=== PATIENT | female | born 1985 | race Caucasian/White ===

== ENCOUNTER 2024-09-27 18:33 | Emergency (ER) | payer OTHER, SELFPAY ==
[2024-09-27 18:35] VITALS: BP 156/104; PULSE 129; RESP 20; TEMP 36.2; O2SAT 95; BMI 64.5
--- NOTE | 2024-09-27 18:36 | ED.GENADULT ---
HPI - General Adult General Chief complaint: General Medical Stated complaint: both hands swollen & joint pain everywhere Time Seen by Provider: 09/27/24 18:44 History of Present Illness HPI narrative: Patient is 39 years old presents today with having diffuse joint pain. No fever no chills. Pain is over both arms and legs and wrist knees ankles. No specific trigger. No travel history. Patient from home. No trauma. Related Data Previous Rx's ?Medication ?Instructions ?Recorded ibuprofen 400 mg tablet 400 mg PO Q6H PRN pain #20 tabs 09/27/24 doxycycline hyclate 100 mg capsule 100 mg PO BID 3 weeks #42 caps 10/02/24 Allergies Allergy/AdvReac Type Severity Reaction Status Date / Time sulfamethoxazole (From AdvReac Rash Verified 09/27/24 18:38 Bactrim) trimethoprim (From Bactrim) AdvReac Rash Verified 09/27/24 18:38 Review of Systems Review of Systems: Positive body ache PMFSH Past Medical History Attestation statement: The following information was validated with the patient. Physical Exam ED Vital Signs: Vital Signs - 24 hr 09/27/24 18:35 09/27/24 20:01 Temperature 97.2 F 98.6 F Pulse Rate 129 H 108 H Respiratory Rate 20 23 H Blood Pressure 156/104 H 159/92 H Pulse Oximetry 95 94 Oxygen Delivery Method Room Air Room Air BMI result Body Mass Index 64.5 Appearance: Alert. Oriented X3. No acute distress. Eyes: Pupils equal, round and reactive to light. ENT: Pharynx normal. Neck: Normal inspection. Neck supple. No lymph nodes noted. No crepitus CVS: Normal heart rate and rhythm. Pulses normal. Normal S1 and S2 Respiratory: No respiratory distress. Breath sounds normal. No Wheezing. No rales Abdomen: Soft and nontender. No rigidity. No distention. good BS x4 Skin: Skin warm and dry. Normal skin color. Normal skin turgor. Extremities: No lower extremity edema. Neurovascular intact to all extremities. No Lacerations. No Rash Neuro: Oriented X 3. No motor deficit. No sensory deficit. Moving all extermities. No slurred speech Course Course Course Narrative: Genoveva Solano APRN This is a rapid medical exam. Deferred additional HPI, ROS, PE to primary provider. 39 yo female here with complaints of diffuse joint pain/swelling/stiffness x several weeks worsened in the morning. 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 Also reports her blood pressure/heart rate are usually elevated in medical settings. Discussed she will need outpatient follow-up for additional testing. Will send labs, need repeat HR/BP Reevaluation(s) Reevaluation #1: Patient tested positive for Lyme. Updated on results via telephone, prescription for doxycycline sent to pharmacy. Advised to follow up with PCP. Patient verbalized understanding. Time: 11:00 Medical Decision Making Medical Decision Making [facility] Narrative: Joints do not appear swollen. Patient labs showed elevated markers including CRP and sed rate question etiology. Lyme pending. White count is normal. Patient is hemoglobin is normal. Question cause of the arthralgia. Will have patient take some Motrin for now follow-up outpatient for outpatient workup of patient's joint pain. No distress. No signs of trauma. No signs of fracture. Currently in stable condition. Differential Diagnosis Differential Diagnoses: The differential diagnosis associated with the presentation includes Joint pain Admission/Observation Consideration of admission/observation: Escalation of care including admission/observation considered Lab Data [facility] Lab Attestation statement: I reviewed the patient's lab results. 09/27/24 18:55 09/27/24 18:55 Labs: Lab Results 09/27/24 Range/Units 18:55 WBC 6.8 (4.8-10.8) X10*3/uL RBC 4.09 L (4.20-5.50) X10*6/uL Hgb 12.2 (12.0-16.0) g/dl Hct 34.7 L (37.0-47.0) % MCV 84.8 (80.0-98.0) fL MCH 29.8 (27.0-33.0) pg MCHC 35.2 H (31.0-35.0) g/dl RDW 13.6 (11.0-16.0) % Plt Count 425 H (160-400) X10*3/uL MPV 8.5 L (9.4-12.3) fL Immature Gran % (Auto) 0.3 (0.0-0.4) % Neut % (Auto) 71.9 (45-73) % Lymph % (Auto) 19.7 L (20-40) % Republic % (Auto) 5.7 (2-11) % Eos % (Auto) 2.1 (0-4) % Baso % (Auto) 0.3 (0-2) % Lymph # (Auto) 1.3 (1.2-4.9) X10*3/uL Republic # (Auto) 0.4 (0.1-1.2) X10*3/uL Eos # (Auto) 0.1 (0.0-0.4) X10*3/uL Baso # (Auto) 0.0 (0.0-0.2) X10*3/uL Abs Immat Gran (auto) 0.02 (0.00-0.03) X10*3/uL Absolute Neuts (auto) 4.9 (2.0-8.3) x10*3/uL Absolute Nucleated RBC 0.000 (0.0-0.012) X10*3/uL Nucleated RBC % (auto) 0.0 (0.0-0.2) /100WBC ESR 66 H (0-20) MM/HR Sodium 139 (135-145) mmol/L Potassium 3.7 (3.3-5.1) mmol/L Chloride 106 (96-108) mmol/L Carbon Dioxide 23 (22-29) mmol/L Anion Gap 14 (12-20) BUN 12 (9-16) mg/dL Creatinine 0.72 (0.5-1.4) mg/dL Estim Creat Clear Calc 147.3 Estimated GFR > 60 Random Glucose 108 (60-115) mg/dL Calcium 9.1 (8.4-10.2) mg/dL Total Bilirubin 0.6 (0.0-1.0) mg/dL Direct Bilirubin 0.2 (0.0-0.5) mg/dL AST 30 (5-31) U/L ALT 40 H (0-31) U/L Alkaline Phosphatase 87 (39-117) U/L C-Reactive Protein 3.50 H (< or = 0.50) mg/dL Total Protein 7.4 (6.5-8.0) g/dL Albumin 4.1 (3.5-5.0) g/dL Lyme Screen IgG & IgM POSITIVE Lyme Progressive Test 1.13 H index Prescription Management I considered prescription management with: Pain Medication Social Determinants Patient?s care significantly limited by Social Determinants of Health including: Problems related to primary support group Discharge Plan Discharge Clinical Impression: Joint pain Patient Disposition: Home, Self-Care Instructions: Arthralgia (ED) Prescriptions: New ibuprofen 400 mg tablet 400 mg PO Q6H PRN (Reason: pain) Qty: 20 0RF doxycycline hyclate 100 mg capsule 100 mg PO BID 21 Days Qty: 42 0RF Referrals: Physician,None [Primary Care Provider, Medical] - 3 days Interventions: ED Discharge Assessment Last Done: 09/27/24 21:54 Discharge Date/Time: 09/27/24 22:01 Print Language: Maltese
[2024-09-27 19:01] LABS: MANUAL DIFF FLAG NO
[2024-09-27 19:05] LABS: Basophils Percent Auto 0.3 % (0-2); Eosinophils Absolute Auto 0.1 X10*3/uL (0.0-0.4); Eosinophils Percent Auto 2.1 % (0-4); Hematocrit 34.7 % (37.0-47.0); Hemoglobin 12.2 g/dl (12.0-16.0); Imm Gran Abs Auto 0.02 X10*3/uL (0.00-0.03); Imm Gran Pct Auto 0.3 % (0.0-0.4); Lymphocytes Absolute Auto 1.3 X10*3/uL (1.2-4.9); Lymphocytes Percent Auto 19.7 % (20-40); Mean Corpuscular HGB Conc 35.2 g/dl (31.0-35.0); Mean Corpuscular Hemoglobin 29.8 pg (27.0-33.0); Mean Corpuscular Volume 84.8 fL (80.0-98.0); Mean Platelet Volume 8.5 fL (9.4-12.3); Monocytes Absolute Auto 0.4 X10*3/uL (0.1-1.2); Monocytes Percent Auto 5.7 % (2-11); Neutrophils Absolute Auto 4.9 x10*3/uL (2.0-8.3); Neutrophils Percent Auto 71.9 % (45-73); Platelet Count 425 X10*3/uL (160-400); Red Blood Count 4.09 X10*6/uL (4.20-5.50); Red Cell Distribution Width 13.6 % (11.0-16.0); White Blood Count 6.8 X10*3/uL (4.8-10.8)
[2024-09-27 19:41] LABS: Alanine Aminotransferase 40 U/L (0-31); Albumin Level 4.1 g/dL (3.5-5.0); Alkaline Phosphatase 87 U/L (39-117); Anion Gap 14 (12-20); Aspartate Amino Transferase 30 U/L (5-31); Bilirubin Direct 0.2 mg/dL (0.0-0.5); Bilirubin Total 0.6 mg/dL (0.0-1.0); Blood Urea Nitrogen 12 mg/dL (9-16); Calcium 9.1 mg/dL (8.4-10.2); Carbon Dioxide 23 mmol/L (22-29); Chloride 106 mmol/L (96-108); Creatinine Clr Calc Pharmacy 147.3; Estimated Glomerular Filt Rate > 60; Glucose Random 108 mg/dL (60-115); Potassium 3.7 mmol/L (3.3-5.1); Sodium 139 mmol/L (135-145); Total Protein 7.4 g/dL (6.5-8.0)
[2024-09-27 19:53] LABS: Erythrocyte Sedimentation Rate 66 MM/HR (0-20)
[2024-09-27 20:01] VITALS: BP 159/92; PULSE 108; RESP 23; TEMP 37; O2SAT 94
[2024-09-27 21:53] VITALS: BP 167/90; PULSE 107; RESP 12; TEMP 37; O2SAT 96
[2024-09-27 21:54] VITALS: BP 167/90; PULSE 107; RESP 12; TEMP 37; O2SAT 96
[2024-09-30 10:08] LABS: Lyme Blot 1.13 index
[2024-09-30 12:05] LABS: Lyme Abs Screen POSITIVE
[2024-10-02 19:39] LABS: 18 KD (IgG) Band NON-REACTIVE; 23 KD (IgG) Band NON-REACTIVE; 23 KD (IgM) Band REACTIVE; 28 KD (IgG) Band NON-REACTIVE; 30 KD (IgG) Band NON-REACTIVE; 39 KD (IgM) Band REACTIVE; 39KD (IgG) Band NON-REACTIVE; 41 KD (IgM) Band NON-REACTIVE; 41KD (IgG) Band REACTIVE; 45 KD (IgG) Band NON-REACTIVE; 58 KD (IgG) Band REACTIVE; 66 KD (IgG) Band NON-REACTIVE; 93 KD (IgG) Band NON-REACTIVE; Lyme IgG Blot Interp NEGATIVE (NEGATIVE); Lyme IgM Blot Interp POSITIVE (NEGATIVE)
== END 2024-09-27 22:01 | disposition home or self-care (01) ==
PROVIDERS: Nurse Practitioner Family; Emergency Provider Emergency Medicine Emergency Medical Services
DX: M79.641 Pain in right hand (principal); M79.642 Pain in left hand; A69.20 Lyme disease, unspecified; Z79.899 Other long term (current) drug therapy
CPT/HCPCS: 36415; 80048; 80076; 85025; 85652; 86140; 86617; 86618; 99283; 99284

== ENCOUNTER 2024-10-24 15:51 | Emergency (ER) | payer OTHER, SELFPAY ==
[2024-10-24 15:53] VITALS: BP 164/85; PULSE 105; RESP 16; TEMP 36.7; O2SAT 96; BMI 63.7
--- NOTE | 2024-10-24 15:59 | ED_ITS ---
HPI - General Adult General Chief complaint: Weakness Stated complaint: recheck for lyme disease; ?ear infection Time Seen by Provider: 10/24/24 15:57 Source: patient, RN notes reviewed and old records reviewed Mode of arrival: ambulatory Limitations: no limitations History of Present Illness ED Provider: Bryan HPI narrative: 39-year-old female presents for evaluation of body aches. Patient reports that she was diagnosed with Lyme disease and just completed a 21 day course of doxycycline 100 mg b.i.d. last night. She reports she still has aches and pains which are improved with Advil Denies any fevers or chills. She is concerned that her Lyme has not been sufficiently treated. She also complains of left ear pain Related Data Previous Rx's ?Medication ?Instructions ?Recorded ibuprofen 400 mg tablet 400 mg PO Q6H PRN pain #20 t abs 09/27/24 doxycycline hyclate 100 mg capsule 100 mg PO BID 3 wee ks #42 caps 10/02/24 Allergies Allergy/AdvReac Type Severity Reaction Status Date / Time sulfamethoxazole (From AdvReac Rash Verified 10/24/24 15:55 Bactrim) trimethoprim (From Bactrim) AdvReac Rash Verified 10/24/24 15:55 Review of Systems Constitutional: Constitutional: Reports body ache(s), Denies chills, Denies fatigue, Denies fever(s) and Denies increased appetite ENT: Denies otalgia Musculoskeletal: Musculoskeletal: Reports arthralgias, Reports joint swelling, Reports limited range of motion and Reports stiffness Endocrine: Endocrine: Denies fatigue PMFSH Social History Social History Do you have a plan to hurt others: No Plan Physical Exam ED Vital Signs: Vital Signs - 24 hr 10/24/24 15:53 Temperature 98.0 F Pulse Rate 105 H Respiratory Rate 16 Blood Pressure 164/85 H Pulse Oximetry 96 Oxygen Delivery Method Room Air BMI result Body Mass Index 63.7 Const General: healthy appearing, comfortable, no acute distress, alert and awake Nutritional Appearance: well nourished Orientation/consciousness: patient oriented x3 HENMT Head: Yes normocephalic and Yes atraumatic Ears: TM normal on the right and TM normal on the left Eyes Eyelids: Yes eyelids normal Conjunctivae: conjunctivae normal Sclerae: sclerae normal Corneas: corneas normal Pupils: Equal, round and reactive pupils present EOM: EOMs intact bilaterally Neck Neck: Yes full ROM Resp Effort & Inspection: normal respiratory effort, able to speak in complete sentences and not labored Cardio Rate: regular rate Rhythm: regular rhythm Skin General skin exam: elasticity normal Neuro General: patient oriented x3 Cranial nerves: Yes CN's II-XII intact bilaterally, Yes Equal, round and reactive pupils present and Yes Bilaterally intact EOM present Cognition (Neuro): normal cognition Extrem Other: Moving all extremities well without any obvious deformities Medical Decision Making Medical Decision Making MDM Narrative: 39-year-old female presents for evaluation of joint aches and pains. She just completed a course of treatment for Lyme disease. She completed a 21 day course. I do not feel that repeat testing would be sufficient as she may still have antibodies despite being appropriately treated. I discussed with the patient that her symptoms will persist for a few weeks to months and she may supplement her Advil with acetaminophen for discomfort. There was no evidence of otitis media or otitis externa. She will be discharged with symptomatic treatment. Differential Diagnosis Differential Diagnoses: The differential diagnosis associated with the presentation includes Arthralgia Joint pains Lyme disease Otitis media Otitis externa Discharge Plan Discharge Clinical Impression: Joint pain due to Lyme disease Patient Disposition: Home, Self-Care Instructions: Lyme Disease (ED) Additional Instructions: Your joint aches and pains can last for several weeks to months after having Lyme disease I do not think that you need any additional antibiotics or Lyme testing You may reconsider testing if her symptoms persist for 2-3 months I recommend alternating ibuprofen 600 mg and acetaminophen 650 mg every 4 hours for your aches and pains Prescriptions: No Action ibuprofen 400 mg tablet 400 mg PO Q6H PRN (Reason: pain) Qty: 20 0RF doxycycline hyclate 100 mg capsule 100 mg PO BID 21 Days Qty: 42 0RF Print Language: Ghanaian
[2024-10-24 16:03] VITALS: BP 164/85; PULSE 105; RESP 16; TEMP 36.7; O2SAT 96
--- OUTSIDE RECORDS SUMMARY | 2024-10-24 16:08 | XMS_ITS | Data Portability ---
Author Organization [place] [facility] Address [address] [place] [address] Assessment Encounter Date Assessment Date Assessment LastModified by Organization Details LastModified Time 03/21/2022 03/21/2022 Brief Overview: Pt is a 36 year old female who is knew to DH/new to provider who has a PMH of HTN not on medications who is being seen today for ear aches, along with chest congestion. Intermittent cough. She had congestion which improved with neti pot and afrin nasal spray along with flonase. 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 Denies fevers, eating and drinking without issue. Vital Signs: Unable to obtain BP due to equipment failure, 97.7, HR 116 (very anxious) RR 20, 98% RA Exam: Patient seen in her kitchen, she has very bad social anxiety so was anxious, pleasant. Answering questions appropriately. Vitals stable, mildly tachycardic however expected with her anxiety. LS CTA, RRR. + BS x 4. Abd soft/non tender. Moist mucous membranes. Bilateral TMs with erythema, R ear canal bulging. Tonsils without erythema or exudate. Skin is warm dry and intact. DDx considered, with rationale: Covid; rapid +, she has been symptomatic now for 2 weeks Acute otitis media; considered based on physical exam with bilateral ear canals erythematous and R TM bulging. PNA; unlikely based on physical exam, LS CTA, a febrile. Treating her for both AOM and viral syndrome (COVID); -- Start Augmentin BID x 5 days -- Mucinex BID x 5 days -- Increase hydration Patient in agreement with plan of care, will work on obtaining PCP. ED precautions also reviewed. Proper Personal Protective Equipment (PPE), including gloves, eye protection and masks were donned and doffed appropriately and all equipment cleaned using approved technique with germicidal disposable wipes prior to and after care of this patient according to [facility] infection prevention protocols. Not available 03/21/2022 17:19:43 01/17/2023 01/17/2023 Time On Scene with Patient: 00:34:40 Brief Overview: 37 y/o female c/o dry cough x 2 weeks now not improving with otc robitussin. she reports intermittent wheeze at night and in the am. she denies cp, sob, fever, dizziness, weakness. no sinus pain or congestion, no sore throat. she also c/o ear pain, bilaterally. no hearing loss or drainage. Vital Signs: BP 148/82, HR 116, repeat HR 108, RR 24 repeat RR 20, T 97.3, O2 100% RA Exam: pleasant 37 y/o female morbidly obese, well appearing, alert NAD standing in her kitchen. lungs: CTAB no wheezes rales or rhonchi. pt speaking in full sentences. heart: tachycardic regular rhythm, no murmur rubs or gallops. ears: clear fluid noted bilaterally no TM or canal erythema. mouth: moist mucous membranes no erythema or exudates, uvula is midline. no calf tenderness or edema, negative homans. DDx considered, with rationale: Pneumonia: considered but she is afebrile, lungs are clear. PE/DVT: considered due to tachycardia but no calf pain, hypoxia. Otitis media: considered but TMs without erythema and intact. Results/ work up: CXR pending. Proper Personal Protective Equipment (PPE), including gloves, eye protection and masks were donned and doffed appropriately and all equipment cleaned using approved technique with germicidal disposable wipes prior to and after care of this patient according to [facility] infection [facility] protocols. [email or web address] Not available 01/17/2023 10:55:17 Plan of Treatment Reminders Order Date Submit Date Provider Last Modified By Organization Details Last Modified Time Details Appointments None recorded. Lab rapid SARS CoV 2 Ag, QL IA, respiratory specimen 2021 022 [facility], [address] [place] [address], [id number], 12/20/202 2 17:03:50 respiratory virus panel 2021 022 [facility] (Centralized Electronic Ordering - All Locations), Patient Can Go To The Location Of Their Choice, [id number] 13:06:03 Referral None recorded. Procedures None recorded. Surgeries None recorded. Imaging XR, chest, 2 view 2022 023 [email or web address] [facility], [address] , [place], [address], 18:50:09 Medication Orders benzonatate 200 mg capsule 2022 023 [email or web address] [facility][id number], [address] [place], [address], 10:58:01 Mucinex 1,200 mg tablet, extended release 2021 023 JEANNINE [facility][id number], [address] [place], [address], 10:04:48 amoxicillin 875 mg-potassiu m clavulanate 125 mg tablet 2021 022 [email or web address] [id number], [address] [place], [address], 10:04:24 Patient TargetsNo targets recorded. Patient Instructions Encounter Date Encounter Id Patient Instructions Last Modified By Organization Details Last Modified Time 01/17/2023 [id number] Thank you [facility] yo ur [facility]. We cannot always find the exact cause of your symptoms during your initial visit. Please follow up with your primary care provider or specialist within 2-3 days to be rechecked or seek medical attention if your symptoms do not go away or get worse. If you develop any new or worsening symptoms and need after hours care, please go to nearest ER and/or call 911. If you have additional concerns or develop a change in your condition between 8am-10pm, please call [facility] at [phone] to help navigate your care. Not available 01/17/2023 11:07:47 Reason for Referral None Reported. Results Created Date Observation Date Name Description Value Unit Range Abnormal Flag Note LastModifiedBy Organization Detail LastModifiedTime 03/21/20 22 03/21/2022 rapid SARS CoV 2 Ag, QL IA, respi rator y speci men Covid-19 (ref: neg) positi ve Not Available [facility] [address] [place], [address], 03/21/2022 17:02:20 03/21/20 22 03/21/2022 rapid SARS CoV 2 Ag, QL IA, respi rator y speci men Control Visual ized/V alid Not Available [facility] [address] [place], [address], 03/21/2022 17:02:20 Result Notes None recorded. Procedures Surgical History Date Name Laterality Status Provider Name and Address Organization Details Recorded Time 03/21/20 Medication Review completed Mildred Oviedo NP [address] [place], [address], [place] [facility] 03/21/2022 16:54:27 Imaging Results None recorded. Procedure Notes None recorded. Medical Equipment None Reported. Allergies Allergen ID Allergen Name Allergen Category Reaction Reaction Severity Criticality Documentation Date Start Date Code Code System Note Provider Name and Address Organization Details Recorded Time 956539 Bactrim medicatio n Not available Not available low 03/21/2022 32728 9 RxNorm Mildred Oviedo NP [address] [place], [address], [place] [facility] 16:51:19 Medications Name Sig Start Date Stop Date Status Note LastModified by Organization Details LastModified Time azithromycin 250 mg tablet TAKE 2 TABLETS BY MOUTH TODAY, THEN TAKE 1 TABLET DAILY FOR 4 DAYS 01/17 completed Not Available Not Available Not Available benzonatate 200 mg capsule TAKE 1 CAPSULE BY MOUTH THREE TIMES A DAY NEEDED FOR 7 DAYS active Not Available Not Available No t Available prednisone 20 mg tablet TAKE 2 TABLETS BY MOUTH EVERY MORNING FOR 5 DAYS WITH FOOD TAKE DOSE NOW 01/17 completed Not Available Not Available Not Available amoxicillin 875 mg-potassium clavulanate 125 mg tablet TAKE 1 TABLET BY MOUTH EVERY 12 HOURS FOR 5 DAYS 01/17 completed Not Available Not Available Not Available Mucinex 1,200 mg tablet, extended release Take 1 tablet twice a day by oral route for 5 days. 01/17 completed Not Available Not Available Not Available Vitals Date Recorded Heart rate Respiratory rate Body temperature Oxygen saturation Oxygen saturation in Arterial blood by Pulse oximetry Systolic And Diastolic Provider Name and Address Organization Details Last Updated DateTime 3 116 /min 24 /min 97.3 [degF] 100 % 100 % 148/82 mm[Hg] Not Available [facility] 3 10:08:04 Date Recorded Heart rate Respiratory rate Oxygen saturation Oxygen saturation in Arterial blood by Pulse oximetry Body temperature Provider Name and Address Organization Details Last Updated DateTime 2 116 /min 20 /min 98 % 98 % 97 [degF] Not Available [facility] 2 16:57:42 Social History Question Answer Notes LastModified by [employer] Details LastModified Time Tobacco Smoking Status Never Smoker Mildred Oviedo NP [address] [place], [address], [place] [facility] 03/21/2022 16:53:15 Does This Patient Have A PCP? No [email or web address] Information not available 03/21/2022 Has Tobacco Cessation Counseling Been Provided? No Information not available 03/21/2022 Sex: Unknown Functional Status Question Answer Note LastModified by [employer] Details LastModified Time Do you use any illicit or recreational drugs? No Information not available 03/21/2022 Do you or have you ever used any other forms of tobacco or nicotine? No Information not available 03/21/2022 What is your level of alcohol consumption? None Information not available 03/21/2022 Mental Status None recorded. Family History Nothing Reported. Medical History Condition Response Diabetes N Coronary Artery Disease N CHF N Parkinson's Disease N Cancer N Stroke N Dementia N Asthma N COPD N Depression N Hypothyroidism N High Cholesterol N Rheumatoid Arthritis N Pulmonary Embolism N Hypertension Y A-fib N Osteoporosis N Kidney Disease N Gynecological HistoryNo gynecological history recorded. Obstetrics History GPAL:G 0 P 0 0 0 0 Past Encounters Encounter ID Performer Location Encounter Start Date Encounter Closed Date Diagnosis/Indication Diagnosis SNOMED-CT Code Diagnosis ICD10 Code Diagnosis Note [id number] Mildred Oviedo NP [facility] [address] [place] [address] 03/21/2022 16:50:09 03/22/2022 18:20:50 Acute right otitis media 606732018 H66.91 Nasal congestion 2778066 0 R09.81 [id number] ROBERT Perera [facility] [address] [place] [address] 01/17/2023 10:02:55 01/18/2023 10:43:10 Viral upper respiratory tract infection 201208755 J06.9 Status of condition: Acute. Testing/Re sults: CXR pending. Discussion :rest and keep hydrated.o k to take otc tylenol as directed on the package.CX R pending.st art Rx Benzonatat e 200 mg take 1 tab PO tid prn cough. Plan, Medication Management & Follow-up recommenda tions:foll ow up with pcp in 3-4 days or sooner prn.go to the ER with worsening symptoms cp, sob, fever, increased wheezing, dizziness, nausea/ vomiting, leg pain edema. Acute sero us otitis media of bilateral ears 2080891800 585851 H65.03 Status of condition: Acute. Testing/Re sults: n/a Discussion :rest and keep hydrated.r ecommend humidifier and or steamed heat in the shower.rec ommend otc tylenol take as directed on the package.ok to continue otc zyrtec 10 mg at bedtime x 5-7 days. Plan, Medication Management & Follow-up recommenda tions:foll ow up with pcp in 3-4 days or sooner prn.go to the ER with worsening symptoms increased pain, hearing loss, fever, discharge, dizziness. Tachycardia 0523045 R00. 0 Status of condition: Chronic. Testing/Re sults: n/a Discussion :pt has chronic tachycardi a, she reports due to anxiety. our last visit with the pt 03/23 her HR was 116. pt is asymptomat ic and states prior pcp was aware. BP also elevated but she reports she has white coat syndrome. Plan, Medication Management & Follow-up recommenda tions:foll ow up with pcp in 3-4 days or sooner prn.go to the ER with worsening symptoms cp, sob, dizziness, weakness, fatigue, leg or calf pain, edema. Health Concerns Section Related Observation LastModified by Organization Detai ls LastModified Time None Recorded Concern Status LastModified by Organization Details LastModified Time None Recorded Advance Directives Directive None Recorded Payers Insurance Date Sequence Insurance Name Policy Number Policy Moore Covered Member ID Moore Member ID Guarantor Name 01/16/2023 1 *SELF PAY* Melissa Soffen [id number] Melissa Soffen 01/24/2023 1 [facility] [id number] Melissa Soffen [id number] Melissa Soffen 01/16/2023 1 [facility] [id number] Melissa Soffen [id number] Melissa Soffen Notes Date Note Type Note Provider Name and Address Organization Details Recorded Time 03/21/2022 text/html Pt is a 36 year old female who is knew to /new to provider who has a PMH of HTN not on medications who is being seen today for ear aches, along with chest congestion. Intermittent cough. She had congestion which improved with neti pot and afrin nasal spray along with flonase. 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 Denies fevers, eating and drinking without issue. Mildred Oviedo NP [address] [place], [address], [place] [facility] 03/21/2022 17:20:30 01/17/2023 text/html General HPI Temp late - DHReported by Patient 37 y/o female known to new to provider with hx of anxiety, morbid obesity, white coat syndrome. pt reports for the past 2 weeks she has had a cough. cough seems to be getting worse and is dry. she denies fever. reports intermittent wheezing more so at night and in the am. she denies cp, sob, leg pain, calf pain or edema. pt denies hx of pneumonia but reports she has had bronchitis in the past. she reports bilateral ear pain now x 3-4 days. pain started in right ear but is now in both. she denies nasal congestion, sinus pain, sore throat, JUÁREZ, body aches, nausea, vomiting, diarrhea. no known sick contacts. pt has tried otc robitussin with no relief. she denies dizziness, weakness, lethargy. states her appetite has been normal. pt reports she does have anxiety and her HR is always high. she is in the process of finding a new therapist and is not on any meds. she states she also has white coat hypertension, but has never been on meds for bp. ROBERT Perera [facility] [address], [place], [address], [place] [facility] 01/17/2023 11:08:03 OBGyn Episode No OBEpisode recorded.
--- OUTSIDE RECORDS SUMMARY | 2024-10-24 16:08 | XMS_ITS | Clinical Summary ---
Author Organization [facility] Address [address] [facility] [facility] [address] [place] [phone] Phone Care Team Providers Care Warehouse Administrative Assistant Name Role Phone Pcp, Unknown Primary Care Provider Unavailabl e Social History Tobacco Use Types Packs/Day Years Used Date Smoking Tobacco: Never Assessed Education Answer Date Recorded Are you interested in more education? Not on derian e 09/29/2024 Are you concerned about learning? Not on file 09/29/2024 No 09/29/2024 No 09/29/2024 Digital Access Answer Date Recorded No 09/29/2024 No 09/29/2024 Reliable internet access at home? Not on file 09/29/2024 Device with a working camera? Not on file Comments Unknown Sex and Gender Information Value Date Recorded Sex Assigned at Not on file Legal Sex Female 3:21 PM EDT Gender Identity Not on file Sexual Orientation Not on file Plan of Treatment Upcoming Encounters Date Type Department Care Team (Late st Contact Info) Description 01/13/2025 1:00 PM EDT Office Visit [facility] [address] [facility] [address] [place] [address] Marielos Mandujano MD [address] [facility] [address]. [address] [place] [address] Health Maintenance Due Date Last Done Comments Adult Td,Tdap Booster 1987 DEPRESSION SCREENING 1999 SMOKING Hx and SMOKELESS TOB ACCO SCREENING 06/11/2000 HEPATITIS C SCREENING 06/11/2005 HIV ONE-TIME SCREENING (18-6 5 YEARS) 06/11/2005 PAP SMEAR 06/11/2008 COVID-19 VACCINE (2023-2 5 season) 2023 HEPATITIS A VACCINES Aged Out No long er eligible based on patient's age to complete this topic HIB VACCINES Aged Out No longer eligi ble based on patient's age to complete this topic MENINGOCOCCAL VACCINES (ACWY) Aged Out No longer eligible based on patient's age to complete this topic MENINGOCOCCAL VACCINES (B) Aged Out N o longer eligible based on patient's age to complete this topic PNEUMOCOCCAL VACCINES (0-49 years) Aged Out No longer eligible based on patient's age to complete this topic Medical Devices Not on file Insurance HMO O HMO O O HMO [employer] Care Teams Warehouse Administrative Assistant Relationship Specialty Start Date End Date Pcp, Unknown PCP - General 09/29/24 Additional Source Comments The information contained in this document represents components of the legal health record. It is not the complete legal health record.[facility]
== END 2024-10-24 16:05 | disposition home or self-care (01) ==
LOC: HO.ED 16:05
PROVIDERS: Emergency Provider Emergency Medicine
DX: A69.23 Arthritis due to Lyme disease (principal); M79.10 Myalgia, unspecified site
CPT/HCPCS: 99282

== ENCOUNTER 2024-12-22 13:13 | Outpatient (AMB) | payer OTHER, SELFPAY ==
[2024-12-22 13:05] VITALS: BP 160/82; PULSE 101; TEMP 36.3; O2SAT 98; BMI 61.2
--- NOTE | 2024-12-22 13:05 | MHC.PC.OV ---
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: No Accompanied by: Self / Same As Patient Allergies sulfamethoxazole (From Bactrim) Adverse Reaction (Verified 12/22/24 13:38) Rash trimethoprim (From Bactrim) Adverse Reaction (Verified 12/22/24 13:38) Rash Medication List - Last Reconciled 12/22/24 by Kelley Robertson PA-C ibuprofen 400 mg PO Q6H PRN loratadine (Claritin) 10 mg PO DAILY omeprazole 20 mg PO DAILY Tobacco use date assessed: 12/22/24 Dental Screening Dental Screen Date: 12/22/24 Did you have a dental visit in the last 12 months?: No Did you have a dental problem in the last 6 months where you did not have access to dental care?: No 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 Presenting with musculoskeletal pain, numbness and tingling in the hands, and elevated blood pressure. Reports pain in the shoulder, hands, and wrists, especially in the morning, affecting daily activities. Right arm is more affected, with associated stiffness. Numbness and tingling in hands, particularly pinky and ring fingers, likely due to ulnar nerve entrapment from leaning on elbows. Advised activity modification to alleviate symptoms. Consistently high blood pressure readings, recent measurement at 180/120 mmHg. Back in May she had a fall and fractured her back continues to have back pain that has been improving. She was following for [facility] for this concern who was deemed to be not a surgical candidate. COUNT INCLUDES THE [facility] Medical History Asthma Family History Mother No problems noted. Father Substance abuse Social History Housing: House Patient Tobacco Use Status: Never used Tobacco e-Cigarette/Vaping Use: Never Used service: No Current occupational status: employed Cognitive needs: Yes (cane) Hearing needs: No Vision needs: Yes (rx glasses) Questionnaire PHQ-9 Over the last 2 weeks, how often have you been bothered by any of the following problems? 1. Little interest or pleasure in doing things: not at all 2. Feeling down, depressed, or hopeless: nearly every day (anxiety couple times a week) 3. Trouble falling or staying asleep, or sleeping too much: not at all 4. Feeling tired or having little energy: not at all 5. Poor appetite or overeating: not at all 6. Feeling bad about yourself - or that you are a failure or have let yourself or your family down: not at all 7. Trouble concentrating on things, such as reading the newspaper or watching television: not at all 8. Moving or speaking so slowly that other people could have noticed. Or the opposite - being so fidgety or restless that you have been moving around a lot more than usual: not at all 9. Thoughts that you would be better off or of hurting yourself in some way: not at all Total score: 3 Depression Screening Interpretation: Positive Depression Screening Follow-up: New Medication prescribed Depression Screening Done: Yes 73123 - PHQ-9 Billing: Yes Source: Developed by Drs. Yordan Real, Adeline Castro, Ibrahima Holly and colleagues, with an educational dalia from [email or web address]. Thrive Questionnaire Date Thrive assessed: 12/22/24 I am a: Patient What is your living situation today?: I have a steady place to live Within the past 12 months, did the food you bought not last and you didn't have the money to get more?: Sometimes True Within the past 12 months, did you worry whether your food would run out before you got money to buy more?: Sometimes True Do you have trouble paying for medicines?: No Do you have trouble getting transportation to medical appointments?: Yes Do you have trouble paying your heating and electricity bill?: Yes Do you have trouble taking care of your child, family member or friend?: No Do you have trouble with day-to-day activities such as bathing, preparing meals, shopping, managing finances, etc.?: No Are you currently unemployed and looking for a job?: No Are you interested in more education?: Yes Please select the resources that you would like help with: Transportation THRIVE Score: 4 AUDIT C Alcohol Use Questionnaire (AUDIT-C) 1. How often do you have a drink containing alcohol?: Monthly or less 2. How many drinks containing alcohol do you have on a typical day when you are drinking?: 1 or 2 3. How often do you have six or more drinks on one occasion?: Less than monthly Total Score: 2 DEIRDRE-7 AMB Questionnaire DEIRDRE-7 Date DEIRDRE - 7 assessed: 12/22/24 Feeling nervous, anxious, or on edge: 1 = Several days Not being able to stop or control worryin = Several days Worrying too much about different things: 1 = Several days Trouble relaxin = Several days Being so restless that it is hard to sit still: 0 = Not at all Becoming easily annoyed or irritable: 0 = Not at all Feeling afraid as if something awful might happen: 0 = Not at all Total DEIRDRE-7 score (0-4 normal; 5-9 mild; 10-14 moderate; 15-21 severe): 4 Source: Developed by Drs. Yordan Real, Adeline Castro, Ibrahima Holly and colleagues, with an educational dalia from [email or web address]. DEIRDRE-7 Assessment Billing DEIRDRE-7 Assessment Tool: DEIRDRE-7 Assessment 90519 Review of Systems Const Denies body aches, Denies fatigue, Denies fever(s), Denies frequent falls, Denies headache(s) and Denies weakness Eyes Reports no additional complaints and Denies change in vision ENT Denies dizziness, Denies facial pain and Denies headache(s) Card Denies chest pain, Denies syncope, Denies irregular heart rhythm, Denies leg edema, Denies lightheadedness and Denies dyspnea Resp Denies dyspnea GI Denies abdominal pain, Denies dyspepsia, Denies heartburn, Denies nausea and Denies vomiting Denies urinary frequency, Denies dysuria, Denies urinary hesitancy and Denies urinary urgency Musc Reports as per HPI, Denies back pain and Denies myalgias Skin/Breast Reports system reviewed and no additional complaints, except as documented Neuro Denies dizziness, Denies syncope, Denies frequent falls, Denies headache(s) and Denies weakness Psych Reports no additional complaints Endo Denies fatigue Physical exam (Primary Care) Vital Signs: Last Vital Signs Temp 97.3 F 12/22/24 13:05 Pulse 101 H 12/22/24 13:05 BP 160/82 H 12/22/24 13:05 Pulse Ox 98 12/22/24 13:05 Oxygen Delivery Method Room Air 12/22/24 13:05 BMI result Body Mass Index 61.2 Tobacco/Smoking Status: Tobacco use Status Tobacco use date assessed 12/22/24 12/22/24 13:07 Patient Tobacco Use Status Never used Tobacco 12/22/24 13:07 e-Cigarette/Vaping Use Never Used 12/22/24 13:07 PHQ-9: PHQ-9 Score PHQ-9: Total score 3 12/23/24 08:03 Depression Screening Interpretation: Positive Depression Screening Follow-up: New Medication prescribed Thrive Assessment: Date of Thrive Assessment Date Thrive assessed 12/22/24 12/22/24 13:07 Const General: cooperative, healthy appearing, comfortable and no acute distress Orientation/consciousness: patient oriented x3 HENMT Head: Yes normocephalic Ears: hearing grossly normal bilaterally General nose exam: Normal external nose present Eyes General: appearance normal, both eyes and all related structures Conjunctivae: conjunctivae normal Neck Neck: Yes full ROM and Yes no lymphadenopathy Resp Effort & Inspection: normal respiratory effort Auscultation: clear to auscultation bilaterally, no crackles, no rales, no rhonchi and no wheezes Cardio Rate: regular rate Rhythm: regular rhythm Skin General skin exam: no rashes or lesions noted Neuro General: patient oriented x3 Gait exam (Neuro): Normal gait present Extrem General: Yes normal to inspection, Yes full ROM and No edema Psych Affect: normal affect Attitude: cooperative Insight: Good insight present (Psych) Judgement: Good judgement present (Psych) Coding Level of Care Code New Pt Level 4 (67127) Diagnoses Morbid obesity with BMI of 60.0-69.9, adult E66.01; Z68.44 Joint pain M25.50 GERD (gastroesophageal reflux disease) K21.9 Shoulder pain M25.519 Elevated blood pressure reading without diagnosis of hypertension R03.0 Depression F32.A Bilateral foot pain M79.671; M79.672 Low back pain M54.50 Additional Codes DEIRDRE-7 Assessment Billing - DEIRDRE-7 Assessment Tool: DEIRDRE-7 Assessment 15445 ([id number]) PHQ-9 - 43079 - PHQ-9 Billing: Yes ([id number]) Assessment & Plan Assessment & Plan (1) Morbid obesity with BMI of 60.0-69.9, adult: Code(s): E66.01 - Morbid (severe) obesity due to excess calories; Z68.44 - Body mass index [BMI] 60.0-69.9, adult Category: Medical Plan: Healthy diet and regular exercise is encouraged. (2) Joint pain: Code(s): M25.50 - Pain in unspecified joint Category: Medical Plan: For generalized joint pain plan to obtain autoimmune workup for further evaluation. Recommend increasing physical activity and can consider physical therapy (3) GERD (gastroesophageal reflux disease): Code(s): K21.9 - Gastro-esophageal reflux disease without esophagitis Category: Medical Plan: Avoid trigger foods such as citrus, tomato products, soda, caffeine, spicy foods and other foods that may be irritating to your stomach. Avoid laying flat 3-4 hours after eating and elevate the head of the bed 30 degrees to prevent acid from moving into the esophagus. (4) Shoulder pain: Code(s): M25.519 - Pain in unspecified shoulder Category: Medical Plan: For shoulder pain recommend ibuprofen to be used as needed as well as heating pads. Consider x-ray and physical therapy if symptoms do not improve (5) Elevated blood pressure reading without diagnosis of hypertension: Code(s): R03.0 - Elevated blood-pressure reading, without diagnosis of hypertension Category: Medical Plan: For elevated blood pressure patient has had elevated blood pressures while in ED as well as in the office today. Significantly elevated when retaken 180/120 plan to trial lisinopril and follow up in 2 months. Patient to obtain blood pressure cuff and take blood pressure daily and report to the office if values exceed 140/90 (6) Depression: Code(s): F32.A - Depression, unspecified Category: Medical Plan: For depression patient would like to try a medication plan to trial Wellbutrin once day for 1 week and increase to twice daily as tolerated. Plan to follow up in 2 months (7) Bilateral foot pain: Code(s): M79.671 - Pain in right foot; M79.672 - Pain in left foot Category: Medical Plan: For bilateral foot pain concern for possible plantar fasciitis. The patient will try insoles and exercises for plantar fasciitis management. If symptoms persist, alternative footwear options will be considered. (8) Low back pain: Code(s): M54.50 - Low back pain, unspecified Category: Medical Plan: For low back pain patient is requesting a medication to help with pain primarily at night and in the mornings. Prescription was sent for tizanidine as she has had this in the past and tolerated it well. Informed patient she can not drive on this medication as it can cause drowsiness. Plan This note was constructed using voice recognition software. While every effort has been made to ensure accuracy and strip machine operator, still areas may have been included sometimes these areas may affect the content or meeting of the given symptoms. Total time spent caring for the patient today was 30 minutes. This includes time spent before the visit reviewing the chart, time spent during the visit, and time spent after the visit and documentation. Patient was informed and verbally consented to the use of an ambient scribe for clinic note documentation during this visit. Orders: Orders Vitamin D 25-OH Total 12/22/24 Z13.21 - Encounter for screening for nutritional disorder Complete Blood Count Auto Diff 12/22/24 E66.01 - Morbid (severe) obesity due to excess calories, Z00.00 - Encounter for general adult medical examination without abnormal findings, Z68.44 - Body mass index [BMI] 60.0-69.9, adult Hemoglobin A1c 12/22/24 Z13.1 - Encounter for screening for diabetes mellitus Rheumatoid Factor 12/22/24 M25.50 - Pain in unspecified joint Erythrocyte Sedimentation Rate 12/22/24 M25.50 - Pain in unspecified joint C Reactive Protein 12/22/24 M25.50 - Pain in unspecified joint SATISH Reflex Titer and Pattern 12/22/24 M25.50 - Pain in unspecified joint TSH reflex Free T4 12/22/24 Z13.29 - Encounter for screening for other suspected endocrine disorder Vitamin B12 and Folate 12/22/24 Z13.21 - Encounter for screening for nutritional disorder Comprehensive Met. Panel 12/22/24 E66.01 - Morbid (severe) obesity due to excess calories, Z00.00 - Encounter for general adult medical examination without abnormal findings, Z68.44 - Body mass index [BMI] 60.0-69.9, adult Free T4 (Free Thyroxine) 12/22/24 Z00.00 - Encounter for general adult medical examination without abnormal findings Lipid Panel 12/22/24 Z13.220 - Encounter for screening for lipoid disorders Medications: New tizanidine 4 mg PO BEDTIME PRN 30 tabs 0RF muscle spasticity bupropion HCl 100 mg PO BID 60 tabs 1RF lisinopril 5 mg PO DAILY 90 tabs 0RF blood pressure test kit-large As directed; to check BP daily 1 ea 0RF R03.0 - Elevated blood-pressure reading, without diagnosis of hypertension Discontinued doxycycline hyclate Discontinued Reason: Patient no longer taking 100 mg PO BID 3 weeks 42 caps 0RF
== END 2024-12-22 14:19 | disposition home or self-care (01) ==
LOC: HO.HMCH 13:14
DX: E66.01 Morbid (severe) obesity due to excess calories (principal); Z68.44 Body mass index [BMI] 60.0-69.9, adult; M25.50 Pain in unspecified joint; K21.9 Gastro-esophageal reflux disease without esophagitis; M25.519 Pain in unspecified shoulder; R03.0 Elevated blood-pressure reading, without diagnosis of hypertension; F32.A Depression, unspecified; M79.671 Pain in right foot; M79.672 Pain in left foot; M54.50 Low back pain, unspecified

== ENCOUNTER → 2024-12-22 13:13 | Outpatient (BNVA) | payer OTHER, SELFPAY | DX: R20.0 Anesthesia of skin (principal); R20.2 Paresthesia of skin; E66.01 Morbid (severe) obesity due to excess calories; K21.9 Gastro-esophageal reflux disease without esophagitis; R03.0 Elevated blood-pressure reading, without diagnosis of hypertension; F32.A Depression, unspecified; M25.50 Pain in unspecified joint; M79.671 Pain in right foot; M79.672 Pain in left foot; M54.50 Low back pain, unspecified; Z91.81 History of falling; Z68.44 Body mass index [BMI] 60.0-69.9, adult | CPT/HCPCS: 96127 ==